=== PATIENT | male | born 1980 | race Caucasian/White ===

== ENCOUNTER 2024-02-20 21:27 | Emergency (ER) | payer OTHER, SELFPAY ==
[2024-02-20] VITALS (9 sets, daily range): BP systolic 143–173; BP diastolic 72–98; PULSE 50–62; TEMP 36.9; O2SAT 95; BMI 28.8
[2024-02-20 21:40] LABS: Glucometer 166 mg/dL (74-106)
--- NOTE | 2024-02-20 21:44 | ECG_ITS ---
[facility] Test Date: 2024-02-20 Pat Name: NILES HOLT Department: Room: - Gender: Male Last Trimmer: : 1980 Requested By: [id number] Order Number: [id number] Reading MD: SANTINO DE JESUS Measurements Intervals [place] Rate: 55 P: 43 ND: 136 QRS: 75 QRSD: 114 T: 94 QT: 450 QTc: 439 Interpretive Statements 1100 Sinus rhythm 1102 Sinus arrhythmia 2320 Nonspecific intraventricular conduction delay 9130 borderline ECG No previous ECG available for comparison Electronically Signed On 02-21-2024 6:32:42 EDT by SANTINO DE JESUS
--- NOTE | 2024-02-20 21:44 | CT_ITS ---
The [address] [address] Patient Name: NILES HOLT MRN: [facility]:[id number] date: 1980 Sex: M Assigned Patient Location: ER Current Patient Location: ED.MAIN Accession/Order Number: [id number] Exam Date: 02/20/2024 22:03 Report Date: 02/20/2024 22:22 At the request of: ZAN MARTIN Procedure: CT head/brain wo con EXAM: CT head/brain wo con HISTORY: Headache for 6 days, no trauma COMPARISON: None. TECHNIQUE: Unenhanced axial CT of the head was performed with coronal and sagittal reformats provided. FINDINGS: No large territorial infarction. No hydrocephalus, midline shift, extra-axial fluid collection or intracranial hemorrhage. Mastoids and middle ears are clear. Imaged paranasal sinuses are clear. The orbits are intact. Calvarium, skull base and osseous structures of the face are intact. Scalp soft tissues are preserved. CT/CT head/brain wo con IMPRESSION: No acute intracranial process. Electronically authenticated by: ZAID UNGER Date: 02/20/2024 22:22
--- NOTE | 2024-02-20 21:45 | ED_ITS ---
HPI HPI - General Adult General Chief complaint: Headache Stated complaint: Headache, Hyperglycemia Time Seen by Provider: 02/20/24 21:30 Source: patient Mode of arrival: walk-in Limitations: no limitations History of Present Illness HPI narrative: 43-year-old male presents for headache. He has had it continuously for 6 days. Its at the top of his head. No trauma fever or stiff neck. He has been taking Tylenol at home but it has not helped much. The pain is severe. Related Data Home Medications ?Medication ?Instructions ?Recorded ?Confirmed glipizide 5 mg tablet mg 02/20/24 lisinopril 20 mg tablet mg 02/20/24 metformin 500 mg tablet,extended mg PO 02/20/24 release 24 hr Previous Rx's ?Medication ?Instructions ?Recorded ghfquxjrxk-alffjllhftwzr-obiqovah 1 cap PO Q6H PRN pain 5 days #20 02/20/24 50 mg-300 mg-40 mg capsule caps (Fioricet) Allergies Allergy/AdvReac Type Severity Reaction Status Date / Time No Known Drug Allergies Allergy Verified 02/20/24 21:36 Opioid HPI Opioid Management Most Recent Opioid Data: No Data to Display Review of Systems ROS Narrative A ten point review of systems is negative except as noted above. Exam Narrative Exam Narrative: Nurses note and vital signs reviewed and patient is not hypoxic. General: The patient appears well and in no apparent distress. Patient is r esting comfortably on cart. He is wearing dark sunglasses Skin: Warm, dry, no pallor noted. There is no rash noted. Head: Normocephalic, atraumatic, neck supple no nuchal rigidity. Eye: Normal conjunctiva, no drainage, EOMI. PERRL Ears, Nose, Mouth, and Throat: oral mucosa is moist. Nares patent. Cardiovascular: Regular Rate and Rhythm Respiratory: Patient is in no distress, no accessory muscle use, lungs are clear to auscultation, no wheezing, rales or rhonchi Back: non-tender GI: Soft and nontender Musculoskeletal: The patient has no evidence of calf tenderness, no pitting edema, symmetrical pulses noted bilaterally Neurological: Awake alert and oriented. Upper and lower extremity strength intact. No facial droop. Psychiatric: Cooperative Constitutional Vital Signs, click to edit/add: Last Vital Signs Temp 98.4 F 02/20/24 21:32 Pulse 56 L 02/20/24 22:23 Resp 16 02/20/24 22:23 BP 152/77 H 02/20/24 22:23 Pulse Ox 95 02/20/24 21:32 Course Vital Signs Vital signs: Vital Signs Temperature 98.4 F 02/20/24 21:32 Pulse Rate 50 L 02/20/24 21:32 Respiratory Rate 16 02/20/24 21:32 Blood Pressure 170/98 H 02/20/24 21:32 Pulse Oximetry 95 02/20/24 21:32 Temperature 98.4 F 02/20/24 21:32 Pulse Rate 56 L 02/20/24 22:23 Respiratory Rate 16 02/20/24 22:23 Blood Pressure 152/77 H 02/20/24 22:23 Pulse Oximetry 95 02/20/24 21:32 Medical Decision Making MDM Narrative Medical decision making narrative: Blood work is essentially normal. CAT scan is negative. I have no clinical suspicion of meningitis. He is feeling 60 to 70% better per the patient after the 4 mg of morphine. He was also given IV Toradol and prescribed Fioricet. He will follow-up with his doctor if symptoms persist. Treatment diagnosis and follow-up were discussed with the patient and his . Differential Diagnosis Differential Diagnosis: Nonspecific headache, intracranial hemorrhage, sinusitis Lab Data Lab results reviewed: Yes I reviewed the patient's lab results Labs: Lab Results 02/20/24 02/20/24 Range/Units 21:36 21:45 WBC 11.1 H (4.0-11.0) 10^3/uL RBC 5.15 (4.70-6.10) 10^6/uL Hgb 14.6 (14.0-18.0) g/dL Hct 42.8 (42.0-54.0) % MCV 83.1 (80.0-94.0) fL MCH 28.3 (25.9-34.0) pg MCHC 34.1 (29.9-35.2) g/dL RDW 12.4 (11.0-15.0) % Plt Count 190 (150-450) 10^3/uL MPV 9.9 (9.5-13.5) fL Neut % (Auto) 59.6 (43.0-75.0) % Lymph % (Auto) 31.1 (20.5-60.0) % [place] % (Auto) 7.6 (1.7-12.0) % Eos % (Auto) 0.9 (0.9-7.0) % Baso % (Auto) 0.4 (0.2-2.0) % Neut # (Auto) 6.6 H (1.4-6.5) 10^3/uL Lymph # (Auto) 3.4 (1.2-3.8) 10^3/uL [place] # (Auto) 0.8 (0.3-0.8) 10^3/uL Eos # (Auto) 0.1 (0.0-0.7) 10^3/uL Baso # (Auto) 0.0 (0.0-0.1) 10^3/uL Abs Immat Gran (auto) 0.04 H (0.00-0.03) 10^3/uL Imm/Tot Granulo (auto) 0.4 (0.0-0.5) % Sodium 129 L (136-145) mmol/L Potassium 3.4 L (3.5-5.1) mmol/L Chloride 92 L (98-107) mmol/L Carbon Dioxide 27.3 (21.0-32.0) mmol/L Anion Gap 13.1 BUN 5.0 L (7.0-18.0) mg/dL Creatinine 0.61 L (0.70-1.30) mg/dL Est GFR ( Amer) >60 (>=60) Est GFR (Non-Af Amer) >60 (>=60) BUN/Creatinine Ratio 8.2 Glucose 164 H (74-106) mg/dL Calcium 8.7 (8.5-10.1) mg/dL POC Glucose 166 H (74-106) mg/dL Imaging Data CT scan - head: Radiologist's impression: ITS Impressions Head CT 02/20/24 21:44 IMPRESSION: No acute intracranial process. Electronically authenticated by: ZAID UNGER Date: 02/20/2024 22:22 Discharge Plan Discharge Stand Alone Forms: Portal Instructions Chief Complaint: Headache Clinical Impression: Headache Patient Disposition: Home, Self-Care Time of Disposition Decision: 23:02 Condition: Good Mode of Transportation: Private Vehicle Prescriptions / Home Meds: New dlmammgkop-pvcvpwvfmznya-qwyu [Fioricet] 50-300-40 mg capsule 1 cap PO Q6H PRN (Reason: pain) 5 Days Qty: 20 0RF No Action lisinopril 20 mg tablet metformin 500 mg tablet extended release 24 hr PO glipizide 5 mg tablet Print Language: Lao Instructions: Acute Headache (ED) Referrals: Physician,Non-Staff, MD [Primary Care Provider] - 1 week
[2024-02-20] MEDS: ONDANSETRON PF 4 MG/2 ML VIAL IV (21:56)
[2024-02-20] MEDS: MORPHINE SULFATE 4 MG/ML VIAL IV (21:56)
[2024-02-20 22:05] LABS: Basophils Percent Auto 0.4 % (0.2-2.0); Eosinophils Absolute Auto 0.1 10^3/uL (0.0-0.7); Eosinophils Percent Auto 0.9 % (0.9-7.0); Hematocrit 42.8 % (42.0-54.0); Hemoglobin 14.6 g/dL (14.0-18.0); Immature Granulocytes Abs Auto 0.04 10^3/uL (0.00-0.03); Immature Granulocytes Pct Auto 0.4 % (0.0-0.5); Lymphocytes Absolute Auto 3.4 10^3/uL (1.2-3.8); Lymphocytes Percent Auto 31.1 % (20.5-60.0); Mean Corpuscular HGB Conc 34.1 g/dL (29.9-35.2); Mean Corpuscular Hemoglobin 28.3 pg (25.9-34.0); Mean Corpuscular Volume 83.1 fL (80.0-94.0); Mean Platelet Volume 9.9 fL (9.5-13.5); Monocytes Absolute Auto 0.8 10^3/uL (0.3-0.8); Monocytes Percent Auto 7.6 % (1.7-12.0); Neutrophils Absolute Auto 6.6 10^3/uL (1.4-6.5); Neutrophils Percent Auto 59.6 % (43.0-75.0); Platelet Count 190 10^3/uL (150-450); Red Blood Count 5.15 10^6/uL (4.70-6.10); Red Cell Distribution Width 12.4 % (11.0-15.0); White Blood Count 11.1 10^3/uL (4.0-11.0)
[2024-02-20 22:18] LABS: Anion Gap 13.1; BUN Creatinine Ratio 8.2; Calcium 8.7 mg/dL (8.5-10.1); Carbon Dioxide 27.3 mmol/L (21.0-32.0); Chloride 92 mmol/L (98-107); Estimated GFR (African America >60 (>=60); Estimated GFR (Non-African Ame >60 (>=60); Glucose 164 mg/dL (74-106); Potassium 3.4 mmol/L (3.5-5.1); Sodium 129 mmol/L (136-145)
[2024-02-20] MEDS: KETOROLAC TROMETHAMINE 30 MG/ML VIAL IVP (23:17)
[2024-02-21] MEDS: 0.9 % SODIUM CHLORIDE 1,000 ML 1000 ML IV (00:03)
[2024-02-21] MEDS: MORPHINE SULFATE 4 MG/ML VIAL IV (00:06)
[2024-02-21] MEDS: ONDANSETRON PF 4 MG/2 ML VIAL IV (00:06)
== END 2024-02-21 01:17 | disposition home or self-care (01) ==
PROVIDERS: Emergency Provider Emergency Medicine
DX: R51.9 Headache, unspecified (principal)
CPT/HCPCS: 36415; 70450; 80048; 85025; 93005; 96374; 96375; 96376; 99285

== ENCOUNTER 2024-07-02 22:02 | Emergency (ER) | payer OTHER, SELFPAY ==
[2024-07-02] VITALS (14 sets, daily range): BP systolic 125–203; BP diastolic 63–109; PULSE 78–79; TEMP 36.3; O2SAT 88–99; BMI 28.8
--- OUTSIDE RECORDS SUMMARY | 2024-07-02 22:07 | XMS_ITS | CCD ---
Author Organization [facility] Care Team Providers Care Active Directory Systems Administrator Name Role Phone Marleny Morejon Unavailable Namita Parada Primary Care Provider ROSANA HARRELL Attending Unavailable YAMILE SANABRIASSICA Adrianne Referring Unavailable ROSANA HARRELL Primary Care Unavailable YAMILE SANABRIASSICA C Attending Unavailable YAMILE SANABRIASSICA C Referring Unavailable KEITH HARRELLRA Primary Care Unavailable ELLY NAMITA C Attending Unavailable ABRAHAMEN NAMITA C Referring Unavailable GAGEN NAMITA C Primary Care Unavailable ELLY NAMITA Adrianne Attending Unavailable ROSANA HARRELL Referring Unavailable ELLY NAMITA C Primary Care Unavailable Medications Current Medications Medication Drug Class(es) Dates Sig (Normalized) Sig (Original) Cold Medicine Plus (1 source) Cold Medicine [facility] Active lisinopril 10 mg oral tablet (4 sources) Angiotensin Converting Enzyme Inhibitor Start: 06-07-2023 End: 12-07-2023 take 1 tablet by mouth once daily in the morning lisinopriL (PRINIVIL,ZESTRIL) 10 mg tablet Indications: Hypertension, unspecified type TAKE ONE TABLET BY MOUTH EVERY MORNING 90 tablet 1 12/07/2023 Active take 1 tablet by lisa th every twenty-four hours Lisinopril 10 MG 1 tablet Orally Once a day Active 24 hr metFORMIN hydrochloride 500 mg extended release oral tablet (4 sources) Biguanide Start: 09-23-2023 take 2 tablets by mouth once daily at breakfast metFORMIN XR (GLUCOPHAGE XR) 500 mg 24 hr tablet Indications: Type 2 diabetes mellitus without complication, without long-term current use of insulin ([facility]) Take 2 tablets (1,000 mg total) by mouth daily with breakfast. 60 tablet 2 09/23/2023 Active Start: 06-21-2023 End: 09-23-2023 take 1 tablet by mouth once daily at breakfast metFORMIN XR (GLUCOPHAGE XR) 750 mg 24 hr tablet Indications: Type 2 diabetes mellitus without complication, without long-term current use of insulin ([facility]) Take 1 tablet (750 mg total) by mouth daily with breakfast. 90 tablet 1 06/21/2023 09/23/2023 Discontinued take 1 tablet by lisa th every twenty-four hours metFORMIN HCl ER 750 MG 1 tablet with evening meal Orally Once a day Active Problems Active Problems Problem Classification Problem Date Documented Da te Episodic/Chronic Anxiety disorders (2 sources) Generalized anxiety disorder; Translations: [Generalized anxiety disorder] Onset: 06-09-2022 06-09-2022 Chronic Diabetes mellitus without complication (7 sources) Type 2 diabetes mellitus without complication; Translations: [Type 2 diabetes mellitus without complications] Onset: 08-15-2019 09-22-2023 Chronic Disorders of lipid metabolism (2 sources) Hyperlipidemia; Translations: [Hyperlipidemia, unspecified] Onset: 08-15-2019 08-15-2019 Chronic Essential hypertension (6 sources) Hypertensive disorder; Translations: [Essential (primary) hypertension] Onset: 06-09-2022 09-22-2023 Chronic Fever of unknown origin (1 source) Fever, unspecified Episodic Other upper respiratory infections (1 source) Acute upper respiratory infection, unspecified Episodic Unclassified (1 source) New Patient Onset: 12-28-2023 Past or Other Problems Problem Classification Problem Date Documented Da te Episodic/Chronic Allergic reactions (2 sources) Contact dermatitis; Translations: [Unspecified contact dermatitis, unspecified cause] Onset: 03-18-2023 03-18-2023 Episodic Mood disorders (2 sources) Mood disorders Onset: 09-23-2023 09-23-2023 Other circulatory disease (2 sources) Elevated blood pressure; Translations: [Elevated blood-pressure reading, without diagnosis of hypertension] Onset: 03-18-2023 03-18-2023 Episodic Other non-traumatic joint disorders (2 sources) Shoulder joint pain; Translations: [Pain in unspecified shoulder] Onset: 03-18-2023 03-18-2023 Episodic Other screening for suspected conditions (not mental disorders or infectious disease) (2 sources) Blood chemistry abnormal; Translations: [Abnormal finding of blood chemistry, unspecified] Onset: 08-15-2019 06-21-2023 Episodic Unclassified (2 sources) Onset: 09-23-2023 09-23-2023 Results Test Name Value Interpretation Reference Range Facil ity POCT Hemoglobin A1con 2023 ADA Target < 8 Yes [facility] HbA1c (Bld) [Mass fraction] 10 g/dL Abnormal 4 - 7 g/dL [facility] Interpretation and review of laboratory results Abnormal [facility] COVID Quick Testingon 2022 Result Negative [facility] Other Quick Strepon 04-11-2023 S. pyogenes Org specific cx Ql (Throat) Negative [facility] Other Quick Strep [facility] Other Vital Signs Date Time Vital Sign Value Performing Clinician Facility 09-23-2023 11:02-0500 Body height 177.8 cm Namita Sanabria CASINO BANKER-SHAPER OPERATOR Work Phone: [facility] 09-23-2023 11:02-0500 Body mass index (BMI) [Ratio] 28.9 kg/m2 Namita Elly CASINO BANKER-SHAPER OPERATOR Work Phone: [facility] 09-23-2023 11:02-0500 Body temperature 97.81 [degF] Namita Sanabria CASINO BANKER-SHAPER OPERATOR Work Phone: [facility] 09-23-2023 11:02-0500 Body weight 91.35 kg Namita Sanabria CASINO BANKER-SHAPER OPERATOR Work Phone: [facility] 09-23-2023 11:02-0500 Diastolic blood pressure 86 mm[Hg] Namita Sanabria CASINO BANKER-SHAPER OPERATOR Work Phone: [facility] 09-23-2023 11:02-0500 Heart rate 76 /min Namita Sanabria CASINO BANKER-SHAPER OPERATOR Work Phone: [facility] 09-23-2023 11:02-0500 SaO2% (BldA) [Mass fraction] 98 % Namita Sanabria CASINO BANKER-SHAPER OPERATOR Work Phone: [facility] [employer] [facility] Comment on above: RA 09-23-2023 11:02-0500 Systolic blood pressure 144 mm[Hg] Namitaанна Sanabria CASINO BANKER-SHAPER OPERATOR Work Phone: [employer] [facility] 04-11-2023 12:10-0400 Body height 177.8 cm Marleny Morejon Other [facility] Other 04-11-2023 12:10-0400 Body mass index (BMI) [Ratio] 27.86 kg/m2 Marleny Morejon Other [facility] Other 04-11-2023 12:10-0400 Body temperature 96.9 [degF] Marleny Morejon Other [facility] Other 04-11-2023 12:10-0400 Body weight 88.09 kg Marleny Morejon Other [facility] Other 04-11-2023 12:10-0400 Respiratory rate 18 /min Marleny Morejon Other [facility] Other 04-11-2023 12:10-0400 SaO2% (BldA) [Mass fraction] 97 % Marleny Morejon Other [facility] Other Encounters Encounter Date Encounter Type Care Provider Facility Start: 03-31-2024 End: 03-31-2024 ambulatory [facility] Start: 12-30-2023 End: 12-30-2023 ambulatory [facility] Start: 12-28-2023 End: 12-28-2023 ambulatory [facility] Start: 12-07-2023 Refill Namita matos CASINO BANKER-SHAPER OPERATOR Work Phone: [facility] Comment on above: Hypertension, unspec ified type Start: 09-23-2023 End: 09-23-2023 Office outpatient visit 25 minutes Namita Sanabria CASINO BANKER-SHAPER OPERATOR Work Phone: [facility] Comment on above: Hypertension, unspec ified type (Primary Dx); Type 2 diabetes mellitus without complication, without long-term current use of insulin ([facility]) Start: 09-23-2023 End: 09-23-2023 ambulatory NAMITAАННА SANABRIA [facility] Start: 04-11-2023 End: 04-11-2023 ambulatory Marleny Morejon Other [facility] Other Start: 04-11-2023 Office outpatient ne w 20 minutes Marleny Morejon [facility] Procedures Date Procedure Procedure Detail Performing Clinician Start: 09-23-2023 Hemoglobin glycosyla dedrick a1c Namita Adrianne Sanabria CASINO BANKERAssociaSHAPER OPERATOR Work Phone: Start: 09-23-2023 Adult depression scr eening assessment Namitafam Mireleseber CASINO BANKER-SHAPER OPERATOR Work Phone: Start: 01-05-2023 Microalbumin [Mass/v olume] in Urine by Test strip Namitafam Mireleseber [email or web address] Work Phone: Plan of Treatment Date Care Activity Detail Author Start: 09-23-2024 Adult BMI Follow Up Plan Adult BMI Follow Up Plan [facility] Start: 09-23-2024 Adult BMI Screening Adult BMI Screening [facility] Start: 09-23-2024 Depression Screening Depression Screening [facility] Start: 09-23-2024 Diabetic foot examination Diabetic Foot Exam [facility] Start: 09-23-2024 Tobacco Screening Tobacco Screening [facility] Start: 06-21-2024 Diabetic foot examination Diabetic Foot Exam [facility] Start: 01-06-2024 Urine screening for protein Urine Microalbumin [facility] Start: 12-30-2023 End: 12-30-2023 Patient encounter procedure 12/30/2023 11:00 AM EDT Office Visit [facility] [address] [place], [place] [address], [place] [id number] Namita Sanabria, CASINO BANKER-SHAPER OPERATOR [address] [facility] [address] [place] [address] [facility] Start: 12-28-2023 End: 12-28-2023 Patient encounter procedure 12/28/2023 8:30 AM EDT Office Visit [facility] [address] [place] [id number] Rosana Harrell, CASINO BANKER-SHAPER OPERATOR [address] [place], [place] [id number] [facility] Start: 05-14-2023 Influenza vaccination Influenza Vaccine [facility] Start: 1998 DTaP,Tdap and Td Vaccines (1 - Tdap) DTaP,Tdap and Td Vaccines (1 - Tdap) [facility] Start: 1979 Glaucoma screening Diabetic Ophthalmology Exam [facility] Payers Date Payer Category Payer Private Health Insurance [facility] [id number] 2023-Present [phone] [address] [address] [place] [address] [id number] 2023 Private Health Insurance [id number] 1979 Unknown [id number] 1979 Unknown [id number] 1979 Unknown [id number] 1979 Unknown [id number] Social History Date Type Detail Facility Unknown if ever smoked [facility] [employer] Other Start: 08-15-2019 End: 10-23-2020 Sex Assigned At [facility] [employer] Other Start: 07-07-2022 Tobacco smoking stat [facility] Ex-smoker [facility] History of tobacco use Current smoker [facility] Start: 07-07-2022 Tobacco use and exposure Smokeless tobacco non-user [facility] Start: 09-23-2023 Alcohol intake Lifetime non-d gisell (finding) [facility] Start: 08-15-2019 End: 10-23-2020 History of Social function [facility] Frequency of Alcohol Consumption Never [facility] Start: 1979 Sex Assigned At Not on file [facility] History of Present illness Narrative 09-23-2023 Namita Sanabria APRN-SHAPER OPERATOR - 09/23/2023 11:00 AM EST Note Date & Type Note Facility 09-23-2023 History of Present illness Narrative Subjective Patient ID: Niles Miranda is a 43 y.o. male who presents today for a 3 month f/u DM and HTN. Niles reports that he has not been eating as well as he should. Let himself enjoy the holidays and had gone on vacation. He does not exercise other than work activity. Reports that he has a cold or flu a few weeks ago and attributes his blood sugar to being sick as well. Diabetes He presents for his follow-up diabetic visit. He has type 2 diabetes mellitus. His disease course has been worsening. Hypoglycemia symptoms include hunger (sometimes, not often). Pertinent negatives for hypoglycemia include no dizziness, headaches or nervousness/anxiousness. Pertinent negatives for diabetes include no blurred vision, no chest pain, no foot paresthesias, no foot ulcerations, no polydipsia, no polyphagia, no polyuria and no visual change. Symptoms are stable. Risk factors for coronary artery disease include male sex, obesity, hypertension, stress and diabetes mellitus. Current diabetic treatment includes oral agent (monotherapy). He is compliant with treatment all of the time. His weight is increasing steadily. He is following a generally unhealthy diet. When asked about meal planning, he reported none. He never participates in exercise. Home blood sugar record trend: Will check BS if he feels bad but not often. An VASILIY inhibitor/angiotensin II receptor kamilah is being taken. Eye exam is current. Hypertension This is a chronic problem. The current episode started more than 1 year ago. The problem is unchanged. The problem is controlled. Pertinent negatives include no anxiety, blurred vision, chest pain, headaches, orthopnea, palpitations, peripheral edema or shortness of breath. Risk factors for coronary artery disease include male gender, obesity, stress, sedentary lifestyle and diabetes mellitus. Past treatments include VASILIY inhibitors. The current treatment provides moderate improvement. Compliance problems include exercise and diet. The following portions of the patient's history were reviewed and updated as appropriate: allergies, current medications, past family history, past medical history, past social history, past surgical history, problem list, and medication reconciliation was completed including current medication and post discharge medication. Review of Systems Review of Systems Constitutional: Negative for activity change, appetite change, chills and fever. HENT: Positive for rhinorrhea (clear, intermittent). Negative for congestion, ear pain, sinus pain and sore throat. Recently over a cold/flu from a few weeks ago. Eyes: Negative for blurred vision. Respiratory: Negative for cough, shortness of breath and wheezing. Cardiovascular: Negative for chest pain, palpitations and orthopnea. Gastrointestinal: Negative for abdominal pain, constipation, diarrhea, nausea and vomiting. Endocrine: Negative for polydipsia, polyphagia and polyuria. Genitourinary: Negative for difficulty urinating. Musculoskeletal: Negative for gait problem. Skin: Negative for rash. Neurological: Negative for dizziness, light-headedness and headaches. Psychiatric/Behavioral: Negative for sleep disturbance. The patient is not nervous/anxious. Objective BP 144/86 (BP Site: Left Arm, BP Postition: Sitting, BP CUFF SIZE: L (13-17 inches)) Pulse 76 Temp 36.6 C (97.8 F) (Tympanic) Ht 177.8 cm (5' 10 ) Wt 91.4 kg (201 lb 6.4 oz) SpO2 98% Comment: RA BMI 28.90 kg/m Physical Exam Physical Exam Vitals and nursing note reviewed. Constitutional: General: He is not in acute distress. Appearance: Normal appearance. He is overweight. He is not ill-appearing or toxic-appearing. HENT: Head: Normocephalic and atraumatic. Cardiovascular: Rate and Rhythm: Normal rate and regular rhythm. Pulmonary: Effort: Pulmonary effort is normal. Breath sounds: Normal breath sounds. No wheezing or rhonchi. Abdominal: General: Bowel sounds are normal. Palpations: Abdomen is soft. Tenderness: There is no abdominal tenderness. There is no guarding or rebound. Skin: General: Skin is warm and dry. Neurological: Mental Status: He is alert and oriented to person, place, and time. Gait: Gait is intact. Gait (steady unassisted) normal. Psychiatric: Mood and Affect: Mood normal. Behavior: Behavior is cooperative. Diabetic foot exam: Visual exam was normal without lesions. Left: Pulses Dorsalis Pedis: present Posterior Tibial: present Vibratory sensation normal Filament test 10/10 Right: Pulses Dorsalis Pedis: present Posterior Tibial: present Vibratory sensation normal Filament test 10/10 Assessment/Plan Nilse was seen today for diabetes and hypertension. Diagnoses and all orders for this visit: Hypertension, unspecified type Type 2 diabetes mellitus without complication, without long-term current use of insulin ([facility]) - POCT Hemoglobin A1c - metFORMIN XR (GLUCOPHAGE XR) 500 mg 24 hr tablet; Take 2 tablets (1,000 mg total) by mouth daily with breakfast. - DM worsened, A1C 10.0 up from 8.9. Admits to not monitoring his diet as well as he could. Plans to make adjustments to life style. Will increase Metformin 1000 XR daily. Reinforced need for diet modifications and exercise! - HTN controlled, denies any issues at home. Will continue current regimen at this time. Will continue to monitor, suggest checking BP daily and as needed. To consider medication adjustment pending BP monitoring. - due for labs at next appt Follow up 3 months DM/HTN SHARMILA Garza 09/23/23 1149 documented in this encounter [facility] Instructions 09-23-2023 Patient InstructionsAttachments Note Date & Type Note Facility 09-23-2023 Instructions SHARMILA Garza - 09/23/2023 11:00 AM EST Some Eating Tips That Can Help You Lose Weight Eat only at the table. Avoid eating while watching TV or doing other activities. Eat only when you are hungry - not out of boredom or when you feel bad. Do not skip meals. This will prevent you from overeating at the next meal. Keep plenty of low-calorie snacks available. Fruits and vegetables are good choices. Bring your lunch to school or work. Drink ice water with meals. This helps decrease the appetite. Eat low-fat, low-salt, and low-sugar foods. Avoid fatty foods like fried foods, prepared meats, and fast foods. Eat foods that are high in bulk, such as vegetables, whole grain breads, and cereals. Eat foods with complex sugars such as rice, beans, pasta. Eat slowly. Put your spoon down between bites. You will feel full sooner. Allow yourself an occasional treat. The following attachments cannot be sent through Care Everywhere.Diabetes Exchange Diet (Turkish)documented in this encounter [facility] Evaluation note 04-11-2023 Note Date & Type Note Facility 04-11-2023 Evaluation note Encounter Date Diagnosis Assessment Notes Mar, Fever (ICD-10 - R50.9) Mar, Viral URI with cough (ICD-10 - J06.9) Discussed with patient exam and history is consistent with viral upper respiratory infection. Discussed viral nature of illness and typical duration of 7 to 14 days. Advised antibiotics unfortunately do not treat viral illnesses. May use symptomatic treatment such as Mucinex DM, Claritin. May use Tylenol/ibuprofen for any pain/fever. Follow-up with PCP if not improving over the next 7 days, sooner if significantly worsening symptoms. Patient agreeable to repeat rapid COVID test given patient may have taken at home test too soon. Rapid COVID test in office is also negative. Rapid strep test is negative. [facility] Other Evaluation note Note Date & Type Note Facility Evaluation note Diagnosis Hypertension, unspecified type- Primary Type 2 diabetes mellitus without complication, without long-term current use of insulin ([facility]) documented in this encounter [facility] Evaluation note Note Date & Type Note Facility Evaluation note Diagnosis Hypertension, unspecified type documented in this encounter [facility] History general Narrative - Reported Note Date & Type Note Facility History general Narrative - Reported Type Medical History HYPERTENSION Medical History DIABETES MELLITUS TYPE II [facility] Other Instructions Note Date & Type Note Facility Instructions Not on filedocumented in this en counter [facility] Summary Purpose Family History No Family History Records Found Advance Directives No Advanced Directives Records Found Additional Source Comments REASON FOR VISIT (unrecogniz ed section and content) Reason Comments Diabetes Hypertension Reason Onset Date Comments Med Refill 12/07/2023 Care Teams (unrecognized sec tion and content) Active Directory Systems Administrator Relationship Specialty Start Date End Date Namita Sanabria APRN-CNP [address] [facility], [address] [address] PCP - General Nurse Practitioner 01/07/22 Active Directory Systems Administrator Relationship Specialty Start Date End Date Namita Sanabria APRN-CNP [address] [address] PCP - General Nurse Practitioner 01/07/22 (unrecognized sect ion and content) No Status Records Found INFORMATION SOURCE (unrecogn ized section and content) DATE CREATED AUTHOR 04/04/2024 [facility] FOR RECORDS PERTAINING TO PATIENTS WHO ARE OR HAVE BEEN ENROLLED IN A CHEMICAL DEPENDENCY/SUBSTANCEABUSE PROGRAM, SOME INFORMATION MAY BE OMITTED. This clinical summary was aggregated from multiple sources. Caution should be exercised in using it in the provision of clinical care. This summary normalizes information from multiple sources, and as a consequence, information in this document may materially change the coding, format and clinical context of patient data. In addition, data may be omitted in some cases. CLINICAL DECISIONS SHOULD BE BASED ON THE PRIMARY CLINICAL RECORDS. [email or web address] provides no warranty or guarantee of the accuracy or completeness of information in this document.
--- NOTE | 2024-07-02 22:28 | ED.ANXIETY1 ---
HPI - Anxiety General Chief Complaint: Anxiety Stated Complaint: ANXIETY Time Seen by Provider: 07/02/24 22:08 Source: patient Mode of arrival: walk-in Limitations: no limitations History of Present Illness HPI narrative: 43-year-old male presents to the emergency department for feeling anxious. He has been feeling a bit shaky and anxious and it started today. He is not suicidal. His states that he will get like this from time to time when he drinks alcohol heavily. He had 2 beers today after drinking a 12 pack yesterday. No fever cough chest pain or shortness of breath. Related Data Home Medications ?Medication ?Instructions ?Recorded ?Confirmed glipizide 5 mg tablet mg 02/20/24 lisinopril 20 mg tablet mg 02/20/24 metformin 500 mg tablet,extended mg PO 02/20/24 release 24 hr Previous Rx's ?Medication ?Instructions ?Recorded dykleuevft-orsrdmievksfn-gpqukevy 1 cap PO Q6H PRN pain 5 days #20 02/20/24 50 mg-300 mg-40 mg capsule caps (Fioricet) ondansetron 4 mg disintegrating 4 mg PO Q6H PRN nausea and 02/21/24 tablet vomiting #20 tabs lorazepam 1 mg tablet (Ativan) 1 mg PO Q8H PRN anxiety 4 days #10 07/02/24 tabs Allergies Allergy/AdvReac Type Severity Reaction Status Date / Time No Known Drug Allergies Allergy Verified 02/20/24 21:36 Review of Systems ROS Narrative A ten point review of systems is negative except as noted above. PFSH PFSH Social History Little interest or pleasure in doing things: not at all Feeling down, depressed, or hopeless: not at all Exam Narrative Exam Narrative: Nurses note and vital signs reviewed and patient is not hypoxic. General: The patient appears well and in no apparent distress. Patient is resting comfortably on cart. Skin: Warm, dry, no pallor noted. There is no rash noted. Head: Normocephalic, atraumatic Eye: Normal conjunctiva, no drainage Ears, Nose, Mouth, and Throat: oral mucosa is moist. Nares patent. Cardiovascular: Regular Rate and Rhythm Respiratory: Patient is in no distress, no accessory muscle use, lungs are clear to auscultation, no wheezing, rales or rhonchi Back: non-tender GI: no tenderness to palpation, no masses appreciated. No rebound, guarding, or rigidity noted. Musculoskeletal: The patient has no evidence of calf tenderness, no pitting edema, symmetrical pulses noted bilaterally Neurological: A&O, normal speech, he is not tremorous Psychiatric: Cooperative Constitutional Vital Signs, click to edit/add: Last Vital Signs Temp 97.4 F L 07/02/24 22:12 Pulse 78 07/02/24 22:20 Resp 17 07/02/24 22:20 BP 179/93 H 07/02/24 22:20 Pulse Ox 98 07/02/24 22:20 O2 Del Method Room Air 07/02/24 22:12 Course Vital Signs Vital signs: Vital Signs Temperature 97.4 F L 07/02/24 22:12 Respiratory Rate 19 07/02/24 22:12 Blood Pressure 203/108 H 07/02/24 22:12 Pulse Oximetry 97 07/02/24 22:12 Oxygen Delivery Method Room Air 07/02/24 22:12 Temperature 97.4 F L 07/02/24 22:12 Pulse Rate 78 07/02/24 22:20 Respiratory Rate 17 07/02/24 22:20 Blood Pressure 179/93 H 07/02/24 22:20 Pulse Oximetry 98 07/02/24 22:20 Oxygen Delivery Method Room Air 07/02/24 22:12 MDM - Anxiety MDM Narrative Medical decision making narrative: The patient was given 1 mg IM Ativan and feels improved. His blood pressure has improved as well. He has an appointment with his doctor in a few days and he will keep that appointment and was given a prescription for 10 Ativan tablets. Treatment diagnosis and follow-up were discussed with the patient. Differential Diagnosis Differential diagnosis: Likely panic disorder and acute anxiety Discharge Plan Discharge Chief Complaint: Anxiety Clinical Impression: Acute anxiety Patient Disposition: Home, Self-Care Time of Disposition Decision: 23:23 Condition: Good Mode of Transportation: Private Vehicle Prescriptions / Home Meds: New lorazepam [Ativan] 1 mg tablet 1 mg PO Q8H PRN (Reason: anxiety) 4 Days Qty: 10 0RF No Action lisinopril 20 mg tablet metformin 500 mg tablet extended release 24 hr PO glipizide 5 mg tablet uketqjezrg-ndpgigvduelpi-lwfx [Fioricet] 50-300-40 mg capsule 1 cap PO Q6H PRN (Reason: pain) 5 Days Qty: 20 0RF ondansetron 4 mg tablet,disintegrating 4 mg PO Q6H PRN (Reason: nausea and vomiting) Qty: 20 0RF Print Language: Portuguese Instructions: Anxiety (ED) Additional Instructions: See your family doctor at your appointment on Wednesday. Referrals: Physician,Non-Staff, MD [Primary Care Provider] - 1 week
[2024-07-02] MEDS: LORAZEPAM 2 MG/ML VIAL 1 MG IM (22:36)
== END 2024-07-02 23:46 | disposition home or self-care (01) ==
PROVIDERS: Emergency Provider Emergency Medicine
DX: F41.9 Anxiety disorder, unspecified (principal)
CPT/HCPCS: 96372; 99284; J2060